=== PATIENT | female | born 2005 | race Caucasian/White ===

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

== ENCOUNTER 2024-04-14 09:10 | Emergency (ER) | payer BC, SELFPAY ==
--- NOTE | ~2024-04-14 | XR_ITS ---
EXAMINATION: XR hand RT min 3V DATE: 04/14/2024 09:29 INDICATION: Right hand pain TECHNIQUE: Posteroanterior, oblique and lateral views of the right hand were obtained. COMPARISON: None. FINDINGS: Alignment is normal. No fracture. Joint spaces are normal. No erosions. Soft tissues are unremarkable . IMPRESSION: 1. Negative right hand radiographs. Reviewed, dictated and finalized at location A. ESS MENDER
[2024-04-14 09:19] VITALS: BP 111/77; PULSE 75; RESP 16; TEMP 36.9; O2SAT 100
--- NOTE | 2024-04-14 09:19 | ED.UPPEXIN ---
HPI - Extremity Injury (Upper) General Chief Complaint: Extremity Injury, Upper Stated Complaint: Right Hand Pain Source: patient and RN notes reviewed Mode of arrival: ambulatory Limitations: no limitations History of Present Illness HPI narrative: Patient is a 18-year-old female who presents to the [facility] with complaints of right hand pain. Patient states that she was playing an indoor soccer game last night when another player ran into her. This caused her to fall to the ground and hit her right hand. She reports pain to the base of the 2nd finger. There is swelling and bruising to the area. She does have full range of motion of her right hand. She is neurovascularly intact. Sensation is intact and she denies numbness. Related Data Home Medications ?Medication ?Instructions ?Recorded ?Confirmed ?Last Taken ?Type levocetirizine 5 mg tablet (Xyzal) 5 mg PO DAILY 07/09/22 09/13/22 Unknown History minocycline 1.5 % topical foam topical 04/14/24 Unknown History (Zilxi) Allergies Allergy/AdvReac Type Severity Reaction Status Date / Time No Known Allergies Allergy Verified 04/14/24 09:17 Review of Systems Review of Systems: CONSTITUTIONAL: Denies fever, chills, or sweats. EYES: Denies visual changes, redness, or discharge. ENT: Denies otalgia and sore throat CARDIOVASCULAR: Denies chest pain, palpitations, or edema. RESPIRATORY: Denies cough or dyspnea. GASTROINTESTINAL: Denies abdominal pain, nausea, vomiting, or diarrhea. GENITOURINARY: Denies dysuria or hematuria. SKIN: Denies rash or itching. MUSCULOSKELETAL: Right hand pain. NEUROLOGIC: Denies headache, numbness, or weakness. Pertinent positives per HPI. [facility] Past Medical History Medical History Seasonal allergies Dyshidrotic eczema Acne [facility] BMI 23.0-23.9, adult URI (upper respiratory infection) Encounter to establish care Family History Family History Mother Diabetes mellitus Father Hypertension Social History Social History Smoking status: Never smoker Second hand tobacco smoke exposure: No Lack of Transportation: No Lack of Food: Never True Current Housing: I Have Housing Concerned About Future Housing: No Difficulty Paying Gas/Electric Bills: No Difficulty Paying for Meds: No Currently Unemployed: No Education: High School Diploma/GED Living arrangements: with family Gender identity (if verbalized by the patient): Female Comments At the time of my signature, I reviewed and agree with the nursing past medical, surgical, social, and family history. There is no relevant family history pertinent to the patient complaint. Exam Narrative: GENERAL: This is a well-nourished, well-developed patient, in no apparent distress. HEAD: normocephalic, atraumatic. EYES: Sclera clear/white. Vision is grossly intact. EARS: External ears normal. Hearing grossly intact. NOSE: External nose normal with no obvious nasal discharge, nares without redness, no rhinorrhea. THROAT: Mucous membranes moist, posterior pharynx clear. NECK: Neck supple, non-tender without lymphadenopathy, masses or thyromegaly. CARDIOVASCULAR: Regular rate and rhythm without murmurs, gallops, or rubs. RESPIRATORY: Clear to auscultation. Breath sounds equal bilaterally. No wheezes, rales, or rhonchi. GASTROINTESTINAL: Abdomen soft, non-tender, nondistended. Bowel sounds are active. No hepato-splenomegaly, or palpable masses. No guarding. SKIN: warm, intact with no suspicious lesions or rash, good texture and turgor. NEURO: awake, alert, and oriented to person, place and time. There were no obvious focal neurologic abnormalities. EXTREMITIES: Right hand tenderness. There is swelling and bruising noted to the base of the 2nd finger. Patient is neurovascularly intact. Sensation is intact. Distal motor movement intact. There is no obvious deformity. Course Course Level of Care: Express Care Visit Vital Signs Vital signs: Vital Signs Temperature 98.4 F 04/14/24 09:19 Pulse Rate 75 04/14/24 09:19 Respiratory Rate 16 04/14/24 09:19 Blood Pressure 111/77 04/14/24 09:19 Pulse Oximetry 100 04/14/24 09:19 Temperature 98.4 F 04/14/24 09:19 Pulse Rate 75 04/14/24 09:19 Respiratory Rate 16 04/14/24 09:19 Blood Pressure 111/77 04/14/24 09:19 Pulse Oximetry 100 04/14/24 09:19 Reviewed Procedures Orthopedic Splinting/Casting Injury #1: Side: right Upper Extremity Injury Location: finger Upper Extremity Immobilizer: finger (other) Splint: prefabricated Pre-Formed: metal foam finger splint Pre-Procedure Neuro Vascular Exam: normal Post-Procedure Neuro Vascular Exam: normal MDM - Extremity Injury (Upper) MDM Narrative Medical decision making narrative: Use the RICE method at home. May take ibuprofen and/or Tylenol if needed. If symptoms persist in 1 week after conservative treatment, follow-up with specialist. Differential Diagnosis Differential diagnosis: Likely sprain and strain of wrist, fracture of wrist and fracture of hand Imaging Data Attestation: I personally reviewed and interpreted this imaging study as follows: Radiologist's impression: Imaging Reports Close Hand X-Ray (Signed) Mark Corea - 04/14/24 Launch?[facility] [address] [place] [address] XRay Report Signed Patient: Nelida Mayen : 2005 MR#: [id number] Age: 18 Acct:[id number] Loc: [facility] ADM Date: 04/14/24Attending Dr: Ordering Physician: Adriana Bliss APRN Date of Service: 04/14/24 Procedure(s): XR hand RT min 3V Accession Number(s): [id number] cc: Adriana Bliss APRN; Meng Braxton MD~ EXAMINATION: XR hand RT min 3V DATE: 04/14/2024 09:29 INDICATION: Right hand pain TECHNIQUE: Posteroanterior, oblique and lateral views of the right hand were obtained. COMPARISON: None. FINDINGS: Alignment is normal. No fracture. Joint spaces are normal. No erosions. Soft tissues are unremarkable. IMPRESSION: 1. Negative right hand radiographs. Reviewed, dictated and finalized at location A. [employer] Please be advised this is a medical document. It is intended for [id number] communication. It is written in medical language and may contain unfamiliar abbreviations or verbiage. Medical documents are intended to carry relevant information, facts as evident, and the clinical opinion of the practitioner at the time of the encounter. This report may have been done utilizing a voice recognition system. Attempts have been made to correct errors. However, there may be uncorrected grammatical, spelling, and recognition errors present. The file time of this note does not necessarily represent the time of service. Dictated By: Mark Corea MD 04/14/24929 Signed By: <Electronically signed by Mark Corea MD in OV> 04/14/2432 Critical Care Time Critical Care Time Critical Care Time: No Discharge Plan Discharge Clinical Impression: Contusion of hand, right Qualifiers: Encounter type: initial encounter Qualified Code(s): S60.221A - Contusion of right hand, initial encounter Patient Disposition: Home, Self-Care Condition: Stable Instructions: Contusion in Adults (ED), P.R.I.C.E. Treatment (ED) Additional Instructions: Use the RICE method at home. May take ibuprofen and/or Tylenol if needed. If symptoms persist in 1 week after conservative treatment, follow-up with specialist. Patient Language: Indonesian Prescriptions: No Action Zilxi 1.5 % foam TOPICAL levocetirizine [Xyzal] 5 mg tablet 5 mg PO DAILY triamcinolone acetonide [Nasacort Allergy] 55 mcg aerosol,spray 2 spray intranasal DAILY Qty: 16.9 3RF Rx Instructions: administer into each nostril Follow-up/Referrals: Meng Braxton MD [Primary Care Provider] - Time of Disposition: 09:38
== END 2024-04-14 09:44 | disposition home or self-care (01) ==
PROVIDERS: Emergency Provider Nurse Practitioner; PCP Internal Medicine
DX: S60.221A Contusion of right hand, initial encounter (principal); W03.XXXA Other fall on same level due to collision with another person, initial encounter; Y93.66 Activity, soccer
CPT/HCPCS: 29130; 73130; 99213; G0463

== ENCOUNTER 2025-01-22 08:26 | Emergency (ER) | payer BC, SELFPAY ==
[2025-01-22 08:35] VITALS: BP 115/71; PULSE 94; RESP 16; TEMP 37.1; O2SAT 100
--- NOTE | 2025-01-22 08:49 | ED.FEMALEGU ---
HPI - Female Genitourinary General Chief complaint: Urogenital-Female Stated complaint: UTI SYMPTOMS Time Seen by Provider: 01/22/25 08:30 Source: patient Mode of arrival: ambulatory Limitations: no limitations History of Present Illness HPI Narrative: Nelida is a 19 year old female patient presenting to the clinic today with c/o white itchy vaginal discharge x 1 week. She reports she thinks she may have a yeast infection. States the discharge is clumpy, smells moldy, and is bitter. She has never had vaginal intercourse. No concern for STIs. States she did change to a different type of shaving cream. No history of yeast infections or bacterial vaginosis in the past. Denies any fevers, chills, back pain, or abdominal pain. Denies any UTI symptoms. Last menstrual period was 3 weeks ago. Related Data Home Medications ?Medication ?Instructions ?Recorded ?Confirmed ?Last Taken ?Type levocetirizine 5 mg tablet (Xyzal) 5 mg PO DAILY 07/09/22 09/15/24 Unknown History minocycline 1.5 % topical foam topical 04/14/24 09/15/24 Unknown History (Zilxi) cholecalciferol (vitamin D3) 50 50 mcg PO DAILY 09/17/24 Unknown History mcg (2,000 unit) capsule Allergies Allergy/AdvReac Type Severity Reaction Status Date / Time No Known Allergies Allergy Verified 01/22/25 08:36 Review of Systems Review of Systems: Pertinent positives per HPI. Patient denies any fever, chills, rash, headache, visual changes, dizziness, cough, shortness of breath, chest pain, palpitations, nausea, vomiting, diarrhea, constipation, abdominal pain, or any urinary issues. [facility] Past Medical History Medical History Acne BMI 23.0-23.9, adult Dyshidrotic eczema Encounter to establish care On [facility] drug therapy Seasonal allergies URI (upper respiratory infection) Family History Family History Mother Diabetes mellitus Father Hypertension Social History Social History Smoking status: Never smoker Second hand tobacco smoke exposure: No Lack of Transportation: No Lack of Food: Never True Current Housing: I Have Housing Concerned About Future Housing: No Difficulty Paying Gas/Electric Bills: No Difficulty Paying for Meds: No Currently Unemployed: No Education: High School Diploma/GED Living arrangements: with family Gender identity (if verbalized by the patient): Female Comments At the time of my signature, I reviewed and agree with the nursing past medical, surgical, social, and family history. There is no relevant family history pertinent to the patient complaint. Exam Narrative: General: Well-developed, well nourished, in no apparent distress. Head: Normocephalic, atraumatic. Cardio: Regular rate and rhythm, s1 and s2 normal, no murmur appreciated. Resp: Clear to auscultation bilaterally, no rhonchi, rales, wheezing or rubs. Abdomen: Soft, pliable, bowel sounds present in all quadrants, non-tender to palpation, no organomegly, no CVAT tenderness. : Deferred-patient self swab Course Course Emergency Course: Portions of this record may have been created with voice recognition software. Level of Care: Express Care Visit Vital Signs Vital signs: Vital Signs Temperature 37.1 C 01/22/25 08:35 Pulse Rate 94 01/22/25 08:35 Respiratory Rate 16 01/22/25 08:35 Blood Pressure 115/71 01/22/25 08:35 Pulse Oximetry 100 01/22/25 08:35 Oxygen Delivery Room Air 01/22/25 08:35 Temperature 37.1 C 01/22/25 08:35 Pulse Rate 94 01/22/25 08:35 Respiratory Rate 16 01/22/25 08:35 Blood Pressure 115/71 01/22/25 08:35 Pulse Oximetry 100 01/22/25 08:35 Oxygen Delivery Room Air 01/22/25 08:35 Vital signs reviewed MDM - Female Genitourinary MDM Narrative Medical decision making narrative: At the time of visit patient is resting comfortably on the exam table. Patient appears to be nontoxic. C/o white itchy vaginal discharge x 1 week. She reports she thinks she may have a yeast infection. States the discharge is clumpy, smells moldy, and is bitter. She has never had vaginal intercourse. No concern for STIs. States she did change to a different type of shaving cream. No history of yeast infections or bacterial vaginosis in the past. Denies any fevers, chills, back pain, or abdominal pain. Denies any UTI symptoms. Last menstrual period was 3 weeks ago. On exam patient has soft, pliable, nondistended abdomen, no CVAT tenderness, bowel sounds present all 4 quadrants, nontender. was deferred-patient self swab Labs: Bacterial vaginosis and general culture was obtained and sent to the lab. Plan: I suspect patient has vaginal discharge-yeast infection versus BV. Will send in prescription for Diflucan due to patient's symptoms. Will await BV testing to determine if she needs additional Flagyl. Supportive measures were discussed with the patient and they voiced understanding discharge instructions and agrees to treatment plan. Return precautions reviewed Differential Diagnosis Differential diagnosis: Likely bacterial vaginosis, cervicitis, vaginitis and other (Vaginal yeast infections) Discharge Plan Discharge Clinical Impression: Vaginal discharge Clinical Impression: (Ruled Out): URI (upper respiratory infection) Patient Disposition: Home Condition: Stable Instructions: Antibiotic Form, Yeast Infection (ED), Vaginal Discharge (ED) Additional Instructions: Swabs for bacterial vaginosis and genital culture was sent to the lab. We will treat you for a yeast infection in the clinic today-take Diflucan as prescribed If the bacterial vaginosis swab comes back positive we will call you in a prescription for Flagyl at that time. Avoid any sexual activity- includes oral, anal, or vaginal intercourse until you get results back and have completed any additional recommended treatment regimens. If symptoms worsen after treatment recommend reevaluation with your PCP or OBGYN Patient Language: Bolivian Prescriptions: New fluconazole 150 mg tablet 150 mg PO ONCE Qty: 2 0RF Rx Instructions: as a single dose. May repeat in 72 hours if needed. No Action Zilxi 1.5 % foam TOPICAL levocetirizine [Xyzal] 5 mg tablet 5 mg PO DAILY triamcinolone acetonide [Nasacort Allergy] 55 mcg aerosol,spray 2 spray intranasal DAILY Qty: 16.9 3RF Rx Instructions: administer into each nostril cholecalciferol (vitamin D3) 50 mcg (2,000 unit) capsule 50 mcg PO DAILY Follow-up/Referrals: Meng Braxton MD [Primary Care Provider, Internal Medicine] Time of Disposition: 08:46 Quality NIHSS Nursing Documentation ED NIHSS nursing documentation: reviewed/agree
== END 2025-01-22 08:34 | disposition home or self-care (01) ==
PROVIDERS: Emergency Provider Nurse Practitioner Family; PCP Internal Medicine
DX: N76.0 Acute vaginitis (principal)
CPT/HCPCS: 87070; 87798; 99213; G0463